=== PATIENT | male | born 1990 | race Asian ===

== ENCOUNTER 2018-06-02 16:11 | Inpatient (IN) | payer OTHER ==
[~2018-06-02] VITALS: Ht 180.3 cm; Wt 110.7 kg
--- NOTE | ~2018-06-02 | EKG ---
[address] [address] ELECTROCARDIOGRAM REPORT Name: SVETLANA ROSAS Room #: 453-P ADM IN M.R.#: [id number] Admission: 06/02/18 Attend Phys: Lashon Augustine, Discharge: Date of : 89 Report #: [id number] THIS REPORT FOR: //name// [facility] Test Date: 2018-06-02 Test Time: 19:56:51 Pat Name: SVETLANA ROSAS Department: Room: 453 P Gender: M Senior Insight Manager: Janet ROSALES : 1990 Requested By: Lashon Augustine Order Number: [id number] MD: Renato Will Measurements Intervals Stanton Rate: 72 P: 44 NE: 200 QRS: 101 QRSD: 116 T: 32 QT: 379 QTc: 415 Interpretive Statements Sinus rhythm Nonspecific intraventricular conduction delay No previous ECG available for comparison Electronically Signed On 06-02-2018 23:12:35 CDT by Renato Will [email or web address] <ELECTRONICALLY SIGNED> By: Renato Will MD 06/02/182311 55 55 Renato Will MD /TERELL
--- NOTE | ~2018-06-02 | O ---
[facility] [place] [address] OPERATIVE REPORT Name: SVETLANA ROSAS Room #: 453-P ADM IN M.R.#: [id number] Admission: 06/02/18 Attend Phys: Lashon Augustine, Discharge: Date of : 89 Report #: [id number] THIS REPORT FOR: //name// CC: DENIS physician/PCP Lashon Augustine DATE OF SERVICE: 06/02/2018 PREOPERATIVE DIAGNOSIS: Right dorsal hand infection with delayed presentation of open metacarpal fractures. POSTOPERATIVE DIAGNOSIS: Right dorsal hand infection with delayed presentation of open metacarpal fractures. PROCEDURE PERFORMED: Incision and debridement, right dorsal hand infection and open metacarpal fractures. SURGEON: Lashon Augustine MD ANESTHESIA: General mask anesthesia. ESTIMATED BLOOD LOSS: 10 mL. TOURNIQUET TIME: 24 minutes. SPECIMEN: Sent to microbiology. COMPLICATIONS: None. CONDITION: Stable. DISPOSITION: To the recovery room. INDICATIONS: The patient is a 27-year-old male with the above-mentioned diagnosis. He elects for operative treatment. The risks, benefits, alternatives and complications were discussed including but were not limited to infection, damage to vessels or nerves, incomplete relief of his symptoms, possible need for more surgery. We did discuss that most likely he will require surgical fixation of the fractures once the infection is resolved. Informed consent was obtained. The correct extremity was identified and labeled by myself after verbal confirmation of patient as well as visual confirmation and signed informed consent. DESCRIPTION OF PROCEDURE: The patient was brought back to the operating room and placed on the operating table in the supine position. He had been placed on antibiotics upon admission last night in the preoperative holding area. He was [address] [address] OPERATIVE REPORT Name: SVETLANA ROSAS Room #: 453-P ADM IN M.R.#: [id number] Admission: 06/02/18 Attend Phys: Lashon Augustine, Discharge: Date of : 89 Report #: [id number] noted to have significant improvement in the edema and erythema. However, he still had persistent erythema over the dorsal hand, centered over a small 2 mm puncture wound. He was placed on the operating table in supine position and tourniquet placed over padding on the patient's right extremity. The right extremity was sterilely prepped and draped in the usual fashion. Final timeout was taken to verify correct patient, operative procedure, operative site, all concurred. The arm was elevated, but was not exsanguinated and the tourniquet inflated. Next, a 4.5 to 5 cm incision was made over the puncture wound, excising the puncture wound, cloudy fluid was immediately obtained. Dissection was carried down through subcutaneous tissue with tenotomy scissors. Careful attention placed to protecting tendons, and a small finger metacarpal fracture appeared to be the bone that had poked through the skin and created the puncture site. The fracture site was thoroughly debrided. There was no other gross pus besides the cloudy fluid that I encountered upon incision. The ring finger metacarpal fracture was debrided as well. The area was then thoroughly irrigated with 3 liters of antibiotic saline using a Pulsavac on the low setting. Once this was done, a deep TLS drain was placed, it was affixed to the skin with an OpSite. The skin was closed with 4-0 nylon suture. The subcutaneous tissue was infiltrated with approximately 7 mL of 0.25% Marcaine. He was placed in a bulky dressing and a volar dorsal slab splint. X-rays prior to splint placement showed a well-reduced fracture and post splint placement showed a well-reduced fracture as well. All fingers were pink with brisk capillary refill at the conclusion of the case after deflation of tourniquet. All sponge and needle counts were correct. The patient was transferred to postoperative recovery room in stable condition. By: [id number] Lashon Augustine MD /aston
[2018-06-02 17:29] VITALS: BP 143/70
[2018-06-02 19:13] LABS: ABSOLUTE NEUTROPHILS 4.5 thou/uL (1.4-8.2); BASOPHILS 0.6 % (0.0-2.0); EOSINOPHILS 1.9 % (0.0-3.0); HEMATOCRIT 38.9 % (42.0-52.0); HEMOGLOBIN 13.8 gm/dL (14.0-18.0); LYMPHOCYTES 24.7 % (24.0-44.0); MCH 31.1 pg (26.0-34.0); MCHC 35.5 g/dL (28.0-37.0); MCV 87.6 fL (80.0-100.0); MONOCYTES 7.4 % (1.0-8.0); PLATELET COUNT 280 thou/uL (150-400); POLYS 65.4 % (36.0-66.0); RBC 4.44 mil/uL (4.50-6.00); RDW 12.7 % (10.5-14.5); WBC 6.8 thou/uL (4.0-11.0)
[2018-06-02 19:26] LABS: ALBUMIN 3.4 g/dL (3.4-5.0); CREATININE 0.8 mg/dL (0.7-1.3); POTASSIUM 3.5 mmol/L (3.5-5.1); PROTIME 10.6 Seconds (9.3-11.4); TOTAL BILIRUBIN 0.6 mg/dL (<0.1-1.0); TOTAL PROTEIN 7.2 g/dL (6.4-8.2)
[2018-06-02 19:27] VITALS: BP 130/67
[2018-06-03 07:40] VITALS: BP 129/65
[2018-06-03 11:40] VITALS: BP 134/67
[2018-06-03 12:10] VITALS: BP 130/60
[2018-06-03 12:40] VITALS: BP 137/72
[2018-06-03 19:41] VITALS: BP 136/64
[2018-06-04 00:33] VITALS: BP 125/59
[2018-06-04 08:24] VITALS: BP 122/63
[2018-06-04 19:29] VITALS: BP 146/64
[2018-06-05 05:34] LABS: BASOPHILS 0.9 % (0.0-2.0); EOSINOPHILS 1.1 % (0.0-3.0); HEMOGLOBIN 12.8 gm/dL (14.0-18.0); LYMPHOCYTES 42.5 % (24.0-44.0); MCH 30.6 pg (26.0-34.0); MCHC 34.7 g/dL (28.0-37.0); MCV 88.3 fL (80.0-100.0); MONOCYTES 6.3 % (1.0-8.0); PLATELET COUNT 290 thou/uL (150-400); POLYS 49.2 % (36.0-66.0); RBC 4.19 mil/uL (4.50-6.00); RDW 12.5 % (10.5-14.5); WBC 6.1 thou/uL (4.0-11.0)
[2018-06-05 05:47] LABS: CALCIUM 8.6 mg/dL (8.5-10.1); CREATININE 0.8 mg/dL (0.7-1.3); POTASSIUM 3.9 mmol/L (3.5-5.1)
[2018-06-05 07:38] VITALS: BP 126/75
[2018-06-06 07:05] VITALS: BP 118/73
[2018-06-06 19:28] VITALS: BP 144/75
[2018-06-07 06:06] LABS: BASOPHILS 0.5 % (0.0-2.0); EOSINOPHILS 1.9 % (0.0-3.0); HEMATOCRIT 39.5 % (42.0-52.0); HEMOGLOBIN 13.9 gm/dL (14.0-18.0); LYMPHOCYTES 36.5 % (24.0-44.0); MCH 31.1 pg (26.0-34.0); MCHC 35.2 g/dL (28.0-37.0); MCV 88.3 fL (80.0-100.0); MONOCYTES 10.2 % (1.0-8.0); PLATELET COUNT 326 thou/uL (150-400); POLYS 50.9 % (36.0-66.0); RBC 4.47 mil/uL (4.50-6.00); RDW 12.3 % (10.5-14.5)
[2018-06-07 06:15] LABS: CALCIUM 9.2 mg/dL (8.5-10.1); CREATININE 0.8 mg/dL (0.7-1.3); POTASSIUM 3.7 mmol/L (3.5-5.1)
[2018-06-07 08:14] VITALS: BP 129/59
[2018-06-07] MEDS ORDERED: CEFTRIAXON1 GM/50 M1 IVPB (13:20)
[2018-06-07] MEDS ORDERED: IBUPROFEN 600600 M1 PO (13:20)
[2018-06-07 19:21] VITALS: BP 125/76
[2018-06-08 08:50] VITALS: BP 130/63
[2018-06-08 13:37] VITALS: BP 130/63
== END 2018-06-08 17:25 | disposition home or self-care (01) | DRG 514 ==
LOC: 4W 16:11 → ENTRNSPT 06-08 16:53 → 4W 06-08 17:25
PROVIDERS: Hospitalist
PROC: 0LB70ZZ Excision of Right Hand Tendon, Open Approach (ICD-10-PCS; principal; 2018-06-03)
DX: S62.324B Displaced fracture of shaft of fourth metacarpal bone, right hand, initial encounter for open fracture (principal); S62.326B Displaced fracture of shaft of fifth metacarpal bone, right hand, initial encounter for open fracture; B08.4 Enteroviral vesicular stomatitis with exanthem; F12.90 Cannabis use, unspecified, uncomplicated; F14.10 Cocaine abuse, uncomplicated; S69.91XA Unspecified injury of right wrist, hand and finger(s), initial encounter; X58.XXXA Exposure to other specified factors, initial encounter; Z88.8 Allergy status to other drugs, medicaments and biological substances; Z23 Encounter for immunization; Y93.89 Activity, other specified; Y92.89 Other specified places as the place of occurrence of the external cause; Y99.8 Other external cause status; Z79.899 Other long term (current) drug therapy
CPT/HCPCS: 10047; 50101; 50386; 50445; 50825; 53078; 57006; 57091; 57103; 62110; 62900; 70005

== ENCOUNTER → 2018-06-09 | Outpatient (CLI) | payer OTHER ==
[~2018-06-09] MED LIST: CEFTRIAXON1 GM/50 M1 IVPB; CEPHALEXIN500 MG PO; IBUPROFEN 600600 M1 PO
[2018-06-09 10:41] VITALS: BP 130/68
== END ==
LOC: OPONC 01:31
DX: L08.9 Local infection of the skin and subcutaneous tissue, unspecified (principal); S62.306G Unspecified fracture of fifth metacarpal bone, right hand, subsequent encounter for fracture with delayed healing; X58.XXXD Exposure to other specified factors, subsequent encounter
CPT/HCPCS: 95000

== ENCOUNTER → 2018-06-10 | Outpatient (CLI) | payer OTHER | LOC: OPONC 00:37 | DX: L08.9 Local infection of the skin and subcutaneous tissue, unspecified (principal); S62.306G Unspecified fracture of fifth metacarpal bone, right hand, subsequent encounter for fracture with delayed healing; X58.XXXD Exposure to other specified factors, subsequent encounter | CPT/HCPCS: 95000 ==

== ENCOUNTER → 2018-06-11 | Outpatient (CLI) | payer OTHER | LOC: OPONC 08:21 | DX: L08.9 Local infection of the skin and subcutaneous tissue, unspecified (principal); S62.306G Unspecified fracture of fifth metacarpal bone, right hand, subsequent encounter for fracture with delayed healing; X58.XXXD Exposure to other specified factors, subsequent encounter | CPT/HCPCS: 95000 ==

== ENCOUNTER → 2018-06-12 | Outpatient (CLI) | payer OTHER ==
[~2018-06-12] MED LIST changes: -CEPHALEXIN500 MG PO
[2018-06-12 10:04] LABS: HEMOGLOBIN 14.5 gm/dL (14.0-18.0); MCH 30.4 pg (26.0-34.0); MCHC 34.5 g/dL (28.0-37.0); MCV 88.2 fL (80.0-100.0); RBC 4.76 mil/uL (4.50-6.00); RDW 13.1 % (10.5-14.5); WBC 4.6 thou/uL (4.0-11.0)
[2018-06-12 10:41] LABS: ALBUMIN 3.4 g/dL (3.4-5.0); CALCIUM 9.2 mg/dL (8.5-10.1); CREATININE 0.8 mg/dL (0.7-1.3); POTASSIUM 4.2 mmol/L (3.5-5.1); TOTAL BILIRUBIN 0.3 mg/dL (<0.1-1.0); TOTAL PROTEIN 7.3 g/dL (6.4-8.2)
== END ==
LOC: OPONC 01:00
PROVIDERS: Specialist
DX: L08.9 Local infection of the skin and subcutaneous tissue, unspecified (principal)
CPT/HCPCS: 95000

== ENCOUNTER → 2018-06-13 | Outpatient (CLI) | payer OTHER ==
[2018-06-13 09:40] VITALS: BP 142/76
== END ==
LOC: OPONC 00:18
DX: L08.9 Local infection of the skin and subcutaneous tissue, unspecified (principal)
CPT/HCPCS: 95000

== ENCOUNTER → 2018-06-14 | Outpatient (CLI) | payer OTHER ==
[2018-06-14 09:30] VITALS: BP 137/73
== END ==
LOC: OPONC 00:24
DX: L08.9 Local infection of the skin and subcutaneous tissue, unspecified (principal)
CPT/HCPCS: 95000

== ENCOUNTER → 2018-06-15 | Outpatient (CLI) | payer OTHER ==
[2018-06-15 13:49] VITALS: BP 140/65
== END ==
LOC: OPONC 00:59
DX: L08.9 Local infection of the skin and subcutaneous tissue, unspecified (principal)
CPT/HCPCS: 95000

== ENCOUNTER → 2018-06-16 | Outpatient (CLI) | payer OTHER ==
[2018-06-16 10:43] VITALS: BP 137/69
== END ==
LOC: OPONC 00:29
DX: L08.9 Local infection of the skin and subcutaneous tissue, unspecified (principal)
CPT/HCPCS: 95000

== ENCOUNTER → 2018-06-17 | Outpatient (CLI) | payer OTHER | LOC: OPONC 06-16 08:22 | DX: L08.9 Local infection of the skin and subcutaneous tissue, unspecified (principal) | CPT/HCPCS: 95000 ==

== ENCOUNTER → 2018-06-18 | Outpatient (CLI) | payer OTHER | LOC: OPONC 00:15 | DX: L08.9 Local infection of the skin and subcutaneous tissue, unspecified (principal) | CPT/HCPCS: 95000 ==

== ENCOUNTER → 2018-06-19 | Outpatient (CLI) | payer OTHER ==
[2018-06-19 09:42] LABS: HEMATOCRIT 42.2 % (42.0-52.0); HEMOGLOBIN 14.8 gm/dL (14.0-18.0); MCH 31.1 pg (26.0-34.0); MCHC 35.2 g/dL (28.0-37.0); MCV 88.3 fL (80.0-100.0); RBC 4.77 mil/uL (4.50-6.00); RDW 12.7 % (10.5-14.5); WBC 4.8 thou/uL (4.0-11.0)
[2018-06-19 10:03] LABS: ALBUMIN 3.6 g/dL (3.4-5.0); CALCIUM 8.9 mg/dL (8.5-10.1); CREATININE 0.9 mg/dL (0.7-1.3); POTASSIUM 3.9 mmol/L (3.5-5.1); TOTAL BILIRUBIN 0.4 mg/dL (<0.1-1.0); TOTAL PROTEIN 7.1 g/dL (6.4-8.2)
[2018-06-19 13:49] VITALS: BP 136/65
== END ==
LOC: OPONC 00:19
PROVIDERS: Specialist
DX: L08.9 Local infection of the skin and subcutaneous tissue, unspecified (principal)
CPT/HCPCS: 95000

== ENCOUNTER → 2018-06-20 | Outpatient (CLI) | payer OTHER ==
[2018-06-20 09:20] VITALS: BP 132/61
== END ==
LOC: OPONC 06:29
DX: L08.9 Local infection of the skin and subcutaneous tissue, unspecified (principal)
CPT/HCPCS: 95000

== ENCOUNTER → 2018-06-21 | Outpatient (CLI) | payer OTHER ==
[2018-06-21 09:50] VITALS: BP 146/69
== END ==
LOC: OPONC 00:51
DX: L08.9 Local infection of the skin and subcutaneous tissue, unspecified (principal)
CPT/HCPCS: 95000

== ENCOUNTER → 2018-06-22 | Outpatient (CLI) | payer OTHER ==
[2018-06-22 09:30] VITALS: BP 126/66
== END ==
LOC: OPONC 00:36
DX: L08.9 Local infection of the skin and subcutaneous tissue, unspecified (principal)
CPT/HCPCS: 95000

== ENCOUNTER → 2018-06-23 | Outpatient (CLI) | payer OTHER ==
[2018-06-23 11:16] VITALS: BP 116/66
== END ==
LOC: OPONC 00:13
DX: L08.9 Local infection of the skin and subcutaneous tissue, unspecified (principal)
CPT/HCPCS: 95000

== ENCOUNTER → 2018-06-24 | Outpatient (CLI) | payer OTHER ==
[~2018-06-24] MED LIST changes: +CEPHALEXIN500 MG PO
== END ==
LOC: OPONC 09:00
DX: L08.9 Local infection of the skin and subcutaneous tissue, unspecified (principal); S62.306G Unspecified fracture of fifth metacarpal bone, right hand, subsequent encounter for fracture with delayed healing; X58.XXXD Exposure to other specified factors, subsequent encounter
CPT/HCPCS: 95000

== ENCOUNTER → 2018-06-26 | Outpatient (CLI) | payer OTHER ==
[~2018-06-26] MED LIST changes: -CEPHALEXIN500 MG PO
[2018-06-26 10:14] LABS: HEMATOCRIT 42.5 % (42.0-52.0); HEMOGLOBIN 14.9 gm/dL (14.0-18.0); MCH 30.9 pg (26.0-34.0); MCHC 35.1 g/dL (28.0-37.0); RBC 4.83 mil/uL (4.50-6.00); RDW 12.6 % (10.5-14.5); WBC 3.9 thou/uL (4.0-11.0)
[2018-06-26 10:15] LABS: ALBUMIN 3.6 g/dL (3.4-5.0); CALCIUM 8.7 mg/dL (8.5-10.1); POTASSIUM 3.6 mmol/L (3.5-5.1); TOTAL PROTEIN 7.2 g/dL (6.4-8.2)
[2018-06-26 12:45] VITALS: BP 136/65
== END ==
LOC: OPONC 00:53
PROVIDERS: Specialist
DX: L08.9 Local infection of the skin and subcutaneous tissue, unspecified (principal)
CPT/HCPCS: 95000

== ENCOUNTER → 2018-06-27 | Outpatient (CLI) | payer OTHER ==
[2018-06-27 10:05] VITALS: BP 137/77
== END ==
LOC: OPONC 06:41
DX: L08.9 Local infection of the skin and subcutaneous tissue, unspecified (principal)
CPT/HCPCS: 95000

== ENCOUNTER → 2018-06-28 | Outpatient (CLI) | payer OTHER ==
[~2018-06-28] MED LIST changes: +CEPHALEXIN500 MG PO
[2018-06-28 09:30] VITALS: BP 134/64
== END ==
LOC: OPONC 00:19
DX: L08.9 Local infection of the skin and subcutaneous tissue, unspecified (principal); S62.306G Unspecified fracture of fifth metacarpal bone, right hand, subsequent encounter for fracture with delayed healing; X58.XXXD Exposure to other specified factors, subsequent encounter
CPT/HCPCS: 95000

== ENCOUNTER → 2018-06-29 | Outpatient (CLI) | payer OTHER ==
[2018-06-29 09:50] VITALS: BP 137/86
== END ==
LOC: OPONC 02:34
DX: L08.9 Local infection of the skin and subcutaneous tissue, unspecified (principal); S62.306G Unspecified fracture of fifth metacarpal bone, right hand, subsequent encounter for fracture with delayed healing; X58.XXXD Exposure to other specified factors, subsequent encounter
CPT/HCPCS: 95000

== ENCOUNTER → 2018-06-30 | Outpatient (CLI) | payer OTHER ==
[~2018-06-30] MED LIST changes: -CEPHALEXIN500 MG PO
[2018-06-30 10:34] VITALS: BP 137/80
== END ==
LOC: OPONC 00:15
DX: L08.9 Local infection of the skin and subcutaneous tissue, unspecified (principal)
CPT/HCPCS: 95000

== ENCOUNTER → 2018-07-01 | Outpatient (CLI) | payer OTHER | LOC: OPONC 09:00 | DX: L08.9 Local infection of the skin and subcutaneous tissue, unspecified (principal); S62.306G Unspecified fracture of fifth metacarpal bone, right hand, subsequent encounter for fracture with delayed healing; X58.XXXD Exposure to other specified factors, subsequent encounter | CPT/HCPCS: 95000 ==

== ENCOUNTER → 2018-07-02 | Outpatient (CLI) | payer OTHER | LOC: OPONC 09:00 | DX: L08.9 Local infection of the skin and subcutaneous tissue, unspecified (principal); S62.306G Unspecified fracture of fifth metacarpal bone, right hand, subsequent encounter for fracture with delayed healing; X58.XXXD Exposure to other specified factors, subsequent encounter | CPT/HCPCS: 95000 ==

== ENCOUNTER → 2018-07-03 | Outpatient (CLI) | payer OTHER ==
[2018-07-03 14:44] VITALS: BP 127/76
== END ==
LOC: OPONC 01:30
DX: L08.9 Local infection of the skin and subcutaneous tissue, unspecified (principal); S62.306G Unspecified fracture of fifth metacarpal bone, right hand, subsequent encounter for fracture with delayed healing; X58.XXXD Exposure to other specified factors, subsequent encounter
CPT/HCPCS: 95000

== ENCOUNTER → 2018-07-04 | Outpatient (CLI) | payer OTHER ==
[2018-07-04 10:18] VITALS: BP 138/71
== END ==
LOC: OPONC 07:31
DX: L08.9 Local infection of the skin and subcutaneous tissue, unspecified (principal); S62.306G Unspecified fracture of fifth metacarpal bone, right hand, subsequent encounter for fracture with delayed healing; X58.XXXD Exposure to other specified factors, subsequent encounter
CPT/HCPCS: 95000

== ENCOUNTER → 2018-07-05 | Outpatient (CLI) | payer OTHER ==
[2018-07-05 09:20] VITALS: BP 122/79
== END ==
LOC: OPONC 06:20
DX: L08.9 Local infection of the skin and subcutaneous tissue, unspecified (principal); S62.306G Unspecified fracture of fifth metacarpal bone, right hand, subsequent encounter for fracture with delayed healing; X58.XXXD Exposure to other specified factors, subsequent encounter
CPT/HCPCS: 95000

== ENCOUNTER → 2018-07-06 | Outpatient (CLI) | payer OTHER ==
[2018-07-06 10:05] VITALS: BP 133/79
== END ==
LOC: OPONC 02:53
DX: L08.9 Local infection of the skin and subcutaneous tissue, unspecified (principal); S62.306G Unspecified fracture of fifth metacarpal bone, right hand, subsequent encounter for fracture with delayed healing; X58.XXXD Exposure to other specified factors, subsequent encounter
CPT/HCPCS: 95000

== ENCOUNTER → 2018-07-07 | Outpatient (CLI) | payer OTHER ==
[2018-07-07 11:12] VITALS: BP 126/78
== END ==
LOC: OPONC 08:45
DX: L08.9 Local infection of the skin and subcutaneous tissue, unspecified (principal); S62.306G Unspecified fracture of fifth metacarpal bone, right hand, subsequent encounter for fracture with delayed healing; X58.XXXD Exposure to other specified factors, subsequent encounter
CPT/HCPCS: 95000

== ENCOUNTER → 2018-07-08 | Outpatient (CLI) | payer OTHER | LOC: OPONC 11:54 | DX: L08.9 Local infection of the skin and subcutaneous tissue, unspecified (principal); S62.306G Unspecified fracture of fifth metacarpal bone, right hand, subsequent encounter for fracture with delayed healing; X58.XXXD Exposure to other specified factors, subsequent encounter | CPT/HCPCS: 95000 ==

== ENCOUNTER → 2018-07-10 | Outpatient (CLI) | payer OTHER ==
[~2018-07-10] MED LIST changes: +CEPHALEXIN500 MG PO
[2018-07-10 09:44] LABS: HEMATOCRIT 45.2 % (42.0-52.0); HEMOGLOBIN 15.3 gm/dL (14.0-18.0); MCH 30.1 pg (26.0-34.0); MCHC 33.9 g/dL (28.0-37.0); MCV 88.8 fL (80.0-100.0); RBC 5.1 mil/uL (4.50-6.00); RDW 12.9 % (10.5-14.5); WBC 5.5 thou/uL (4.0-11.0)
[2018-07-10 10:32] LABS: ALBUMIN 3.6 g/dL (3.4-5.0); CALCIUM 8.9 mg/dL (8.5-10.1); CREATININE 0.9 mg/dL (0.7-1.3); TOTAL BILIRUBIN 0.5 mg/dL (<0.1-1.0); TOTAL PROTEIN 7.3 g/dL (6.4-8.2)
[2018-07-10 11:48] VITALS: BP 140/75
== END ==
LOC: OPONC 00:30
PROVIDERS: Specialist
DX: L08.9 Local infection of the skin and subcutaneous tissue, unspecified (principal); S62.306G Unspecified fracture of fifth metacarpal bone, right hand, subsequent encounter for fracture with delayed healing; X58.XXXD Exposure to other specified factors, subsequent encounter
CPT/HCPCS: 95000

== ENCOUNTER → 2018-07-11 | Outpatient (CLI) | payer OTHER ==
[2018-07-11 11:24] VITALS: BP 136/76
== END ==
LOC: OPONC 00:21
DX: L08.9 Local infection of the skin and subcutaneous tissue, unspecified (principal); S62.306G Unspecified fracture of fifth metacarpal bone, right hand, subsequent encounter for fracture with delayed healing; X58.XXXD Exposure to other specified factors, subsequent encounter
CPT/HCPCS: 95000

== ENCOUNTER → 2018-07-12 | Outpatient (CLI) | payer OTHER ==
[2018-07-12 10:05] VITALS: BP 143/80
== END ==
LOC: OPONC 02:42
DX: L08.9 Local infection of the skin and subcutaneous tissue, unspecified (principal); S62.306G Unspecified fracture of fifth metacarpal bone, right hand, subsequent encounter for fracture with delayed healing; X58.XXXD Exposure to other specified factors, subsequent encounter
CPT/HCPCS: 95000

== ENCOUNTER → 2018-07-13 | Outpatient (CLI) | payer OTHER ==
[2018-07-13 14:51] VITALS: BP 126/78
== END ==
LOC: OPONC 00:33
DX: L08.9 Local infection of the skin and subcutaneous tissue, unspecified (principal); S62.306G Unspecified fracture of fifth metacarpal bone, right hand, subsequent encounter for fracture with delayed healing; X58.XXXD Exposure to other specified factors, subsequent encounter
CPT/HCPCS: 95000

== ENCOUNTER → 2018-07-14 | Outpatient (CLI) | payer OTHER ==
[2018-07-14 10:10] VITALS: BP 142/71
== END ==
LOC: OPONC 07:12
DX: L08.9 Local infection of the skin and subcutaneous tissue, unspecified (principal); S62.306G Unspecified fracture of fifth metacarpal bone, right hand, subsequent encounter for fracture with delayed healing; X58.XXXD Exposure to other specified factors, subsequent encounter
CPT/HCPCS: 95000

== ENCOUNTER → 2018-07-17 | Outpatient (CLI) | payer OTHER ==
[2018-07-17 10:47] LABS: HEMATOCRIT 44.7 % (42.0-52.0); HEMOGLOBIN 15.4 gm/dL (14.0-18.0); MCH 30.3 pg (26.0-34.0); MCHC 34.5 g/dL (28.0-37.0); MCV 87.8 fL (80.0-100.0); RBC 5.09 mil/uL (4.50-6.00); WBC 5.3 thou/uL (4.0-11.0)
[2018-07-17 10:50] VITALS: BP 142/91
[2018-07-17 10:58] LABS: ALBUMIN 3.6 g/dL (3.4-5.0); CALCIUM 8.5 mg/dL (8.5-10.1); POTASSIUM 3.7 mmol/L (3.5-5.1); TOTAL BILIRUBIN 0.4 mg/dL (<0.1-1.0)
== END ==
LOC: OPONC 01:49
PROVIDERS: Specialist
DX: S62.304D Unspecified fracture of fourth metacarpal bone, right hand, subsequent encounter for fracture with routine healing (principal); S62.306D Unspecified fracture of fifth metacarpal bone, right hand, subsequent encounter for fracture with routine healing; W22.8XXD Striking against or struck by other objects, subsequent encounter; F10.21 Alcohol dependence, in remission; F19.11 Other psychoactive substance abuse, in remission
CPT/HCPCS: 91016

== ENCOUNTER → 2018-07-24 | Outpatient (CLI) | payer OTHER ==
[2018-07-24 10:10] VITALS: BP 127/85
[2018-07-24 10:20] LABS: HEMATOCRIT 44.1 % (42.0-52.0); HEMOGLOBIN 15.4 gm/dL (14.0-18.0); MCHC 34.9 g/dL (28.0-37.0); MCV 88.9 fL (80.0-100.0); RBC 4.96 mil/uL (4.50-6.00); RDW 12.5 % (10.5-14.5)
[2018-07-24 10:42] LABS: ALBUMIN 3.6 g/dL (3.4-5.0); CALCIUM 8.5 mg/dL (8.5-10.1); CREATININE 0.9 mg/dL (0.7-1.3); POTASSIUM 3.9 mmol/L (3.5-5.1); TOTAL BILIRUBIN 0.3 mg/dL (<0.1-1.0); TOTAL PROTEIN 7.2 g/dL (6.4-8.2)
== END ==
LOC: OPONC 00:36
PROVIDERS: Specialist
DX: S62.394D Other fracture of fourth metacarpal bone, right hand, subsequent encounter for fracture with routine healing (principal); S62.396D Other fracture of fifth metacarpal bone, right hand, subsequent encounter for fracture with routine healing; A49.01 Methicillin susceptible Staphylococcus aureus infection, unspecified site; F10.21 Alcohol dependence, in remission; F19.11 Other psychoactive substance abuse, in remission; W22.8XXD Striking against or struck by other objects, subsequent encounter
CPT/HCPCS: 91016